=== PATIENT | female | born 1995 | race Caucasian/White ===

== ENCOUNTER 2017-02-12 19:35 | Inpatient (IN) ==
[2017-02-12] MEDS ORDERED: ONDANSETRON 4 MG/2 ML VIAL IV STA (20:04)
[2017-02-12] MEDS ORDERED: SODIUM CHLORIDE 0.9% 1,000 ML IV STA (20:04)
[2017-02-12] MEDS ORDERED: ALUM/MAG/SIMETH/LIDO VISC 1:1 30 ML BOTTLE PO STA (20:04)
[2017-02-12] MEDS ORDERED: HYDROmorphone 2 MG/1 ML VIAL IV STA ×2 (20:04→23:03)
[2017-02-12] MEDS ORDERED: PANTOPRAZOLE 40 MG VIAL IV STA (20:04)
--- NOTE | 2017-02-12 20:06 | Emergency Department Note ---
Geovani Yadav Brittany, am scribing for, and in the presence of, Abel Babcock MD 20:03. Sadiq Yadav Charles R, MD, personally performed the services described in this documentation, ascribed by Sharona Olivo in my presence, and it is both accurate and complete . Arrival - Arrival Chief Complaint: Abdominal / Flank Pain Stated Complaint: Stomach pain, High blood sugar ED Nursing Triage Note: C/O Upper abd pain. Onset 4 days ago. Pt reports that she has a history of chronic pancreatitis due to elevated blood sugars when she was younger per pt. +nausea/vomiting. Last CT-[id number]. Denies urinary s/s. FSG 162 at time of triage. Mode of Arrival: Ambulatory Limitations: No Limitations Source: Patient, RN Notes Reviewed Time Seen by Provider: 02/12/17 19:48 - History of Present Illness HPI Narrative: Patient is a 21 y/o female presenting to the ED with c/o upper abdominal pain that radiates into the back which began 4 days ago. Patient has had some associated nausea and vomiting with this. Denies any urinary symptoms. Patient states that she has had a fluctuation in blood glucose levels today. Reports that current symptoms are similar to those experienced with past episodes of Pancreatitis. Denies possibility of and does not take oral contraceptives. Patient reports a history of Chronic Pancreatitis and Gastroparesis secondary to Hyperglycemia. Last normal bowel movement was today. During triage patient was noted to have a blood glucose level of 162 mg/dL. PCP is Dr. Cardoza of [place], [place]. Patient denies having any further complaints. PMHx of IDDM, Psoriasis, Eczema, Gastroparesis, Chronic Pancreatitis and Cholecystectomy. Onset (ago): day(s) (4) Consistency: constant Date of Last Menstrual Period: 2 weeks ago Allergies/Adverse Reactions: Allergies Allergy/AdvReac Type Severity Reaction Status Date / Time almond Allergy ANAPHYLAXIS Verified 11/21/16 11:19 Amoxicillin Allergy ANAPHYLAXIS Verified 11/21/16 11:19 metoclopramide [From Reglan] Allergy HIVES Verified 11/21/16 11:19 morphine Allergy HIVES Verified 11/21/16 11:19 cinnamon Allergy ANAPHYLAXIS Uncoded 11/21/16 11:19 Home Medications: Home Medications Medication Instructions Recorded Confirmed Type Insulin Aspart [NovoLOG FlexPen] 0 unit SUBCUT DIRECTED 02/12/17 02/12/17 History Insulin Glargine [Lantus] 12 unit SUBCUT BEDTIME 02/12/17 02/12/17 History Loratadine [Claritin] 10 mg PO QAM 02/12/17 02/12/17 History Review of System - Review of System 12 point system: reviewed and no additional remarkable complaints except as stated - Review of System Constitutional: Absent: chills, fever Respiratory: Absent: respiratory distress Gastrointestinal: Present: abdominal pain, nausea, vomiting. Absent: diarrhea, constipation Genitourinary female: Absent: dysuria, frequency, urgency Musculoskeletal: Present: back pain Medical,Surgical,& Family Hx - Medical History Endocrine: History of: Diabetes Mellitus (IDDM) (type 1) Rheumatology: History of;: Psoriasis Gastrointestinal: History of: Pancreatitis (chronic), GI Problems (gastrparesis) Other: History of: Eczema, Skin Problems (psoriasis ) - Surgical History Reproductive Surgeries: Surgical HX of;: Dilation and Curettage - Family History Family History: Reports;: Family Diabetes - Social History Smoking Status: Never smoker Frequency of Alcohol Use: None Type of Drug Use: Marijuana Exam Vital Signs: Vital Signs Temperature 98.0 F 02/12/17 19:37 Pulse Rate 116 H 02/12/17 19:37 Respiratory Rate 16 02/12/17 19:37 Blood Pressure 136/81 02/12/17 19:37 O2 Sat by Pulse Oximetry 99 02/12/17 19:37 - General General appearance: alert, in no apparent distress - Head Head exam: Present: atraumatic, normocephalic - Eye Eye exam: Present: PERRL, EOMI - ENT ENT exam: Present: mucous membranes dry, other (breath does not smell ketotic). Absent: mucous membranes moist - Neck Neck exam: Present: normal inspection, full ROM, trachea midline - Chest Chest inspection: Present: normal inspection, symmetric chest wall rise - Respiratory Respiratory exam: Present: normal lung sounds bilaterally. Absent: respiratory distress - Cardiovascular Cardiovascular exam: Present: normal rhythm, tachycardia, normal heart sounds. Absent: regular rate - Abdominal Exam Abdominal exam: Present: soft, tenderness (epigastric and mid-abdominal tenderness), hypoactive bowel sounds. Absent: normal bowel sounds - Extremities Exam Extremities exam: Present: normal inspection - Back Exam Back exam: Present: normal inspection - Neurological Exam Neurological exam: Present: alert, oriented X3, CN II-XII intact. Absent: motor sensory deficit - Psychiatric Psychiatric exam: Present: normal affect, normal mood - Skin Skin exam: Present: warm, dry, intact, normal color Course - Reevaluation(s) Reevaluation #1: Patient still feeling sick still having abdominal pain still having nausea symptoms Time: 22:31 - Consultations Consultation #1: Hospitalist will admit patient Time: 22:31 Results - Labs CBC & BMP: 02/12/17 19:52 02/12/17 19:52 Lab Results: I have reviewed the patients labs Labs: Laboratory Tests 02/12/17 19:39 POC Glucose 162 H Laboratory Tests 02/12/17 02/12/17 19:52 19:52 WBC 10.8 RBC 3.93 Hgb 12.3 Hct 35.5 L Plt Count 277 b-Hydroxybutyric mmol/L 0.3 Laboratory Tests 02/12/17 19:52 Urine Color Yellow Urine Appearance Cloudy Urine pH 6.0 Ur Specific [place] 1.010 Urine Protein 30 Urine Glucose (UA) Negative Urine Ketones Negative Urine Blood Negative Urine Nitrate Negative Urine Bilirubin Negative Urine Urobilinogen < 2.0 H Urine Leukocytes Large H Urine RBC 7 Urine WBC 1337 Ur Squamous Epith Cells Occasional Urine Bacteria Moderate Urine Mucus Occasional Laboratory Tests 02/12/17 19:52 Sodium 140 Potassium 3.6 Chloride 105 Carbon Dioxide 27 BUN 7 Creatinine 0.60 Glucose 184 H Lactic Acid 1.1 Calcium 9.1 Magnesium 1.6 L Troponin I < 0.015 Albumin 3.3 L Globulin 3.7 H Albumin/Globulin Ratio 0.8 L Amylase 23 L Lipase 60.0 L Laboratory Tests 02/12/17 19:52 Urine Test Negative - Diagnostic Findings Procedure: CT Abdomen and Pelvis: image reviewed by me, report reviewed by me ( Negative CT abdomen pelvis) Disposition Clinical Impression: Gastroenteritis, Dehydration, Epigastric abdominal pain, Intractable nausea and vomiting, Abdominal pain, Gastroparesis, UTI (urinary tract infection), Hypomagnesemia, Hyperglycemia, History of recurrent pancreatitis Case discussed with: patient, patient's family Disposition: Still a Patient Condition: Stable Time of Disposition: 22:32
[2017-02-12 20:20] LABS: Basophils # 0.1 10*3/uL (0.0-0.2); Basophils % 0.5 % (0.0-0.8); Eosinophils # 0.1 10*3/uL (0.0-0.87); Eosinophils % 0.8 % (0.00-10.9); Hematocrit 35.5 VOL% (35.7-47.0); Hemoglobin 12.3 GM/DL (12.0-16.0); Immature Granulocytes % 0.2 %; Immature Granulocytes Absolute 0.02 #; Lymphocytes # 2.6 10*3/uL (1.4-4.0); Lymphocytes % 24.3 % (21.3-54.2); Mean Corpuscular HGB Conc 34.6 GM/DL (32-36); Mean Corpuscular Hemoglobin 31 PG (27-34); Mean Corpuscular Volume 90.3 FL (87-102); Mean Platelet Volume 10.1 FL (9.6-12.0); Monocytes # 0.8 10*3/uL (0.11-0.8); Monocytes % 7.6 % (1.7-12.7); Neutrophils # 7.2 10*3/uL (1.4-7.4); Neutrophils % 66.6 % (38.7-73.9); Platelet Count 277 T/CUMM (130-400); Red Blood Count 3.93 MC/CUMM (3.8-5.5); Red Cell Distribution Width 12.7 % (9.3-17.3); White Blood Count 10.8 T/CUMM (4-12)
[2017-02-12] MEDS ORDERED: HYDROmorphone 2 MG/1 ML VIAL ONE (20:31)
[2017-02-12] MEDS ORDERED: PANTOPRAZOLE 40 MG VIAL IV ONE (20:31)
[2017-02-12] MEDS ORDERED: ONDANSETRON 4 MG/2 ML VIAL ONE (20:31)
[2017-02-12] MEDS ORDERED: ALUM/MAG/SIMETH/LIDO VISC 1:1 30 ML BOTTLE PO ONE (20:31)
[2017-02-12 20:38] LABS: Apearance,Urine CLOUDY (Clear); Bacteria,Urine Moderate /HPF (Few); Bilirubin,Urine Negative (Negative); Blood, Urine Negative (Negative); Glucose,Urine (UA) Negative (Negative); Ketones,Urine Negative (Negative); Mucus,Urine Occasional /LPF (Occasional); Nitrite,Urine Negative (Negative); Protein,Urine 30 MG/DL; RBC,Urine 7 /HPF (0-4); Squamous Epithelial Cell,Urine Occasional /HPF (0-10); Urine Color Yellow (Yellow); Urine Urobilinogen < 2.0 EU/DL (0.2-1.0); WBC,Urine 1337 /HPF (0-6)
[2017-02-12 20:40] LABS: Lactic Acid 1.1 MMOL/L (0.4-2.0)
[2017-02-12 20:42] LABS: Alanine Aminotransferase 22 U/L (13-56); Albumin 3.3 G/DL (3.4-5.0); Alkaline Phosphatase 101 U/L (45-117); Amylase 23 U/L (25-115); Aspartate Amino Transferase 18 U/L (0-37); Bilirubin,Total < 0.39 MG/DL (0.2-1.0); Blood Urea Nitrogen 7 MG/DL (7-18); Calcium 9.1 MG/DL (8.5-10.1); Glucose 184 MG/DL (74-106); Magnesium 1.6 MG/DL (1.8-2.4); Osmolality,Calculated 281.4 MOS/KG (273-304); Potassium 3.6 MMOL/L (3.5-5.1); Sodium 140 MMOL/L (136-145); Troponin I Only < 0.015 NG/ML (0.00-0.045)
[2017-02-12] MEDS ORDERED: MAGNESIUM SULF RIDER 2 GM in PREMIX 1 EACH IV STA (21:07)
[2017-02-12] MEDS ORDERED: LEVOFLOXACIN INJ 750 MG in PREMIX 1 EACH IV STA (21:07)
[2017-02-12] MEDS ORDERED: MAGNESIUM SULF RIDER 50 ML IV ONE (21:50)
[2017-02-12] MEDS ORDERED: LEVOFLOXACIN INJ 150 ML IV ONE (21:50)
[2017-02-12 22:48] LABS: Barbiturates Screen,Urine Negative (Negative); Benzodiazepines Screen,Urine Negative (Negative); Cannabinoid Screen,Urine Positive (Negative); Opiate Screen,Urine Positive (Negative); Phencyclidine Screen,Urine Negative (Negative)
--- NOTE | 2017-02-12 23:16 | Hospitalist History & Physical ---
Assessment and Plan (1) Abdominal pain Status: Acute Assessment and plan: The patient is admitted hospital with epigastric and abdominal pain with radiation to the back. We will start the patient on twice daily Pepcid and treat with narcotic for pain relief. Will obtain GI consultation in the morning. Current Visit: Yes Qualifiers: Abdominal location: right upper quadrant Qualified Code(s): R10.11 - Right upper quadrant pain (2) Diabetes type 1, controlled Status: Acute Current Visit: Yes Qualifiers: Diabetes mellitus complication status: with other specified complication Qualified Code(s): E10.69 - Type 1 diabetes mellitus with other specified complication (3) Gastroparesis Status: Acute Current Visit: Yes History of Present Illness Chief complaint: Abdominal pain History of present illness: Ms. Lebron is a 21 year old female whose last name was roxannllsania MARCIAL on last admission. The patient presented to emergency room with epigastric pain radiating to the back. The patient has diabetes mellitus type 1 and takes intermittent insulin injections with Lantus at night. The patient's pain is moderate, continuous, and not improving at home. It is associated with vomiting. The patient denies fever, chills, angina, shortness of breath. The patient's symptoms began 2 days prior to admission to the hospital per her history. A complete 10 system review is obtained all systems not mentioned in history of present illness were negative. Home Medications Medication Instructions Recorded Confirmed Type Insulin Aspart [NovoLOG FlexPen] 0 unit SUBCUT DIRECTED 02/12/17 02/12/17 History Insulin Glargine [Lantus] 12 unit SUBCUT BEDTIME 02/12/17 02/12/17 History Loratadine [Claritin] 10 mg PO QAM 02/12/17 02/12/17 History Allergies Allergy/AdvReac Type Severity Reaction Status Date / Time almond Allergy ANAPHYLAXIS Verified 11/21/16 11:19 Amoxicillin Allergy ANAPHYLAXIS Verified 11/21/16 11:19 metoclopramide [From Reglan] Allergy HIVES Verified 11/21/16 11:19 morphine Allergy HIVES Verified 11/21/16 11:19 cinnamon Allergy ANAPHYLAXIS Uncoded 11/21/16 11:19 Medical,Surgical,& Family Hx - Medical History Endocrine: History of: Diabetes Mellitus (IDDM) (type 1) Rheumatology: History of;: Psoriasis Gastrointestinal: History of: Pancreatitis (chronic), GI Problems (gastrparesis) Other: History of: Eczema, Skin Problems (psoriasis ) - Surgical History Reproductive Surgeries: Surgical HX of;: Dilation and Curettage - Family History Family History: Reports;: Family Diabetes - Social History Smoking Status: Never smoker Frequency of Alcohol Use: None Type of Drug Use: Marijuana 12 point system: reviewed and no additional remarkable complaints except as stated Exam - Constitutional Vitals: Period Temp Pulse Resp BP Sys/Leiva Pulse Ox Last 24 Hr 98 F-98.0 F 116-116 16-16 136-136/81-81 99 Exam: Constitutional System: Moderate distress. No tremulousness. Head: Normocephalic, atraumatic. Ears, Nose and Throat System: No evidence of Otitis or Mastoiditis. No epistaxis or discharge Eyes System: Pupils equal, round, and reactive. Extraocular muscles intact. Neck: Supple, without adenopathy, No jugular venous distention. No thyromegaly , neck mass, or prior surgery apparent. Respiratory System: Chest clear to auscultation. Cardiovascular System: Heart with regular rate and rhythm. No murmur. GI System: Abdomen soft, moderate tender. Hypo-active bowel sounds present. Musculoskeletal System: limbs with no pedal edema. Full distal pulses. Neurological System: No discernable sensory deficit. No aphasia Psychiatric System: Conversation is rational Results - Labs CBC & BMP: 02/12/17 19:52 02/12/17 19:52 Lab Results: I have reviewed the past 24 hour labs
[2017-02-13] MEDS ORDERED: DEXTROSE 50% 25 GM/50 ML SYRINGE IV PRN (01:54)
[2017-02-13] MEDS ORDERED: GLUCAGON 1 MG VIAL IM PRN (01:54)
[2017-02-13] MEDS: SODIUM CHLORIDE 0.9% 1,000 ML IV SCH ×4 (01:57→20:06)
[2017-02-13] MEDS: PROMETHAZINE 25 MG/1 ML VIAL IM PRN ×3 (02:15→17:15)
[2017-02-13] MEDS: FAMOTIDINE 20 MG/2 ML VIAL IV SCH ×2 (02:15→13:05)
[2017-02-13] MEDS: INSULIN GLARGINE 100 UNIT/ML SUBCUT SCH ×2 (02:15→20:05)
[2017-02-13] MEDS: HYDROmorphone 2 MG/1 ML VIAL IV PRN ×5 (02:16→22:03)
[2017-02-13 07:03] LABS: Basophils % 0.4 % (0.0-0.8); Eosinophils % 0.5 % (0.00-10.9); Hematocrit 34.5 VOL% (35.7-47.0); Hemoglobin 11.8 GM/DL (12.0-16.0); Immature Granulocytes % 0.4 %; Immature Granulocytes Absolute 0.03 #; Lymphocytes # 1.9 10*3/uL (1.4-4.0); Mean Corpuscular HGB Conc 34.2 GM/DL (32-36); Mean Corpuscular Hemoglobin 31 PG (27-34); Monocytes # 0.6 10*3/uL (0.11-0.8); Monocytes % 7.3 % (1.7-12.7); Neutrophils # 5.5 10*3/uL (1.4-7.4); Neutrophils % 68.4 % (38.7-73.9); Platelet Count 256 T/CUMM (130-400); Red Blood Count 3.79 MC/CUMM (3.8-5.5); Red Cell Distribution Width 12.8 % (9.3-17.3)
[2017-02-13] MEDS: INSULIN LISPRO 100 UNIT/ML SUBCUT SCH ×4 (08:32→20:05)
[2017-02-13] MEDS: ENOXAPARIN 40 MG/0.4 ML SYRINGE SUBCUT SCH (08:33)
[2017-02-13 08:55] LABS: Calcium 8.7 MG/DL (8.5-10.1); Magnesium 1.8 MG/DL (1.8-2.4); Osmolality,Calculated 282.5 MOS/KG (273-304); Potassium 4.1 MMOL/L (3.5-5.1)
--- NOTE | 2017-02-13 08:57 | CT Report ---
CT of the abdomen and pelvis with intravenous contrast. No oral contrast was administered. 100 cc Omni 350. Axial images were obtained with sagittal and coronal reconstructions. Indication: Epigastric pain. Comparison: Noncontrasted study from May 07, 2016. There is a preliminary report from [facility]. The heart is normal in size. The lung bases are clear. There is no pericardial or pleural effusion. The liver is enlarged with a length of 21 cm. There is fatty infiltration of the liver. The gallbladder has been removed. The spleen is upper limits of normal in size. There is no adrenal enlargement. The kidneys are normal in size, location, and contour. No focal renal lesions are identified. There is no hydronephrosis. There is mild uniform urinary bladder wall thickening. There is no adrenal enlargement. There is no pancreatic enlargement. The abdominal aorta is of normal caliber. There is no free air present within the peritoneal cavity. There is a small amount of free fluid noted within the pelvis. The uterus is normal in size. The ovaries are not discretely seen. The loops of small intestine are not dilated. The terminal ileum appears normal. The appendix appears normal. There are a few subcentimeter lymph nodes in the right lower quadrant mesentery. The osseous structures are unremarkable. Within the left aspect of the pelvis, there is a small metal density, probably representing a surgical clip. Note that it is changed slightly in position compared to the previous study. Impression: 1. Enlarged fatty liver. 2. Small amount of free fluid within the pelvis. 3. Urinary bladder wall thickening, could indicate cystitis. 4. Subcentimeter lymph nodes in the right lower quadrant mesentery, this can be seen with mesenteric adenitis. The CT exam was performed using one or more of the following dose reduction techniques: Automated exposure control, adjustment of the mA and/or kV according to patient size, or use of iterative reconstruction technique. PROCEDURE INTERPRETED AT [facility], [place] DEPARTMENT OF RADIOLOGY Final Report Signed by: Dr. Loly Gilbert
--- NOTE | 2017-02-13 09:36 | XRay Report ---
2 view abdomen. Indication: Abdomen pain. The heart is normal in size. The lung bases are clear. Surgical clips are noted in the right upper quadrant and left pelvis. Contrast material is present within nondilated collecting systems and a normal appearing urinary bladder. Bowel gas pattern is normal. No free air. No organomegaly. Normal osseous structures. Impression: No abnormality is seen. PROCEDURE INTERPRETED AT [facility] DEPARTMENT OF RADIOLOGY Final Report Signed by: Dr. Loly Gilbert
--- NOTE | 2017-02-13 13:22 | Gastrointestinal Consult Note ---
Assessment and Plan (1) Intractable nausea and vomiting Status: Chronic Assessment and plan: Persistent nausea and vomiting with complaints of abdominal pain likely secondary to her acute urinary tract infection. She has had previous cholecystectomy and has no history to suggest acid peptic source. Clinically she likely does have some component of gastroparesis that has been exacerbated by her acute urinary tract infection. At this point will continue with antiemetics IV fluids treat her acute UTI and monitor. Current Visit: Yes Qualifiers: Vomiting type: unspecified Qualified Code(s): R11.2 - Nausea with vomiting , unspecified History of Present Illness Chief complaint: Nausea and vomiting with abdominal pain History of present illness: Ms. Lebron is a 21 year old female With long-standing history of vent dependent diabetes mellitus was previously on an insulin infusion pump she has been off that for some time. Patient presented with complaints of several day history of abdominal pain she found to have urinary tract infection with gram-negative rods.. She has had occasional heartburn indigestion but only a regular basis. She has never had previous ulcer that she reports. She has had previous cholecystectomy. No clinical sign of obstruction at this time. No other family members have been ill. Home Medications Medication Instructions Recorded Confirmed Type Insulin Aspart [NovoLOG FlexPen] 0 unit SUBCUT DIRECTED 02/12/17 02/12/17 History Insulin Glargine [Lantus] 12 unit SUBCUT BEDTIME 02/12/17 02/12/17 History Loratadine [Claritin] 10 mg PO QAM 02/12/17 02/12/17 History Allergies Allergy/AdvReac Type Severity Reaction Status Date / Time almond Allergy ANAPHYLAXIS Verified 11/21/16 11:19 Amoxicillin Allergy ANAPHYLAXIS Verified 11/21/16 11:19 metoclopramide [From Reglan] Allergy HIVES Verified 11/21/16 11:19 morphine Allergy HIVES Verified 11/21/16 11:19 cinnamon Allergy ANAPHYLAXIS Uncoded 11/21/16 11:19 Medical,Surgical,& Family Hx - Medical History Endocrine: History of: Diabetes Mellitus (IDDM) (type 1) Rheumatology: History of;: Psoriasis Gastrointestinal: History of: Pancreatitis (chronic), GI Problems (gastrparesis) Other: History of: Eczema, Skin Problems (psoriasis ) - Surgical History Reproductive Surgeries: Surgical HX of;: Dilation and Curettage - Family History Family History: Reports;: Family Diabetes - Social History Smoking Status: Never smoker Frequency of Alcohol Use: None Type of Drug Use: Marijuana - Constitutional Constitutional: Absent: chills, fever(s) - EENT Eyes: Absent: blurry vision Nose, mouth and throat: Absent: dysphagia, epistaxis - Cardiovascular Cardiovascular: Absent: chest pain at rest, chest pain with activity, edema - Respiratory Respiratory: Absent: cough, dyspnea - Gastrointestinal Gastrointestinal: Present: abdominal pain, bloating, nausea, vomiting. Absent: diarrhea - Genitourinary Genitourinary: Present: flank pain. Absent: hematuria - Neurological Neurological: Absent: abnormal gait, abnormal speech - Hematologic/Lymphatic Hematologic/Lymphatic: Absent: easy bleeding, easy bruising, lymphadenopathy Exam - Constitutional Vitals: Period Temp Pulse Resp BP Sys/Leiva Pulse Ox Last 24 Hr 97.1 F-98.0 F 81-116 16-20 108-136/63-86 94-99 General appearance: normal weight, no acute distress - Head Head exam: Present: normal inspection, normocephalic, atraumatic - Eye Eye exam: Present: EOMI. Absent: conjunctival injection, scleral icterus Pupils: Present: DORI. Absent: irregular - ENT ENT exam: Present: normal oropharynx - Neck Neck exam: Absent: lymphadenopathy, tenderness, thyromegaly - Respiratory Respiratory exam: Present: clear to auscultation bilaterally. Absent: accessory muscle use, rales - Cardiovascular Cardiovascular exam: Present: regular rate and rhythm. Absent: systolic murmur - GI/Abdominal GI/Abdominal exam: Present: normal bowel sounds, soft. Absent: ascites, guarding, mass, organomegaly, tenderness - Extremities Exam Extremities exam: Absent: edema - Neurological Exam Neurological exam: Present: alert, oriented X3 - Psychiatric Psychiatric exam: Present: normal affect, normal mood Results - Labs CBC & BMP: 02/13/17 06:25 02/13/17 06:25 Lab Results: I have reviewed the past 24 hour labs
--- NOTE | 2017-02-13 15:12 | Hospitalist Progress Note ---
Assessment and Plan (1) Gram-positive cocci bacteremia Status: Acute Assessment and plan: Speciation at this point is not known. This is 1 out of 2 sets. Repeat blood cultures this afternoon. Patient did receive a dose of levofloxacin yesterday in the emergency room but since then has not received any antibiotics until I saw her. Current Visit: Yes (2) Penicillin allergy Status: Acute Assessment and plan: From what I have explained to that this was an anaphylactic reaction. For this reason this patient is not going to get to the ceftriaxone I wanted to give a but will give aztreonam (monobactam) 1 g every 8 hours. This does not have any gram-positive coverage will add vancomycin empirically as we will reevaluate in this bacteremia. It turns out clinically that this is a contamination vancomycin will be discontinued. 48 hours should be enough to tell us that. Current Visit: Yes (3) Abdominal pain Status: Acute Assessment and plan: Better than yesterday but still with some discomfort as described above. Patient is not toxic. Current Visit: Yes Qualifiers: Abdominal location: right upper quadrant Qualified Code(s): R10.11 - Right upper quadrant pain (4) UTI (urinary tract infection) Status: Acute Assessment and plan: At this point all I know is that this is a gram-negative UTI. As mentioned above aztreonam will be used for his treatment. Current Visit: No (5) Gastroparesis Status: Acute Assessment and plan: Patient does not have symptoms of nausea vomiting at this time the diabetes is actually controlled. Current Visit: Yes (6) Diabetes type 1, controlled Status: Acute Current Visit: Yes Qualifiers: Diabetes mellitus complication status: with other specified complication Qualified Code(s): E10.69 - Type 1 diabetes mellitus with other specified complication Hospitalist: Subjective Interval history: Patient has been seen interviewed and examined chart has been reviewed. Admitted to the hospital yesterday with back pain radiating from the epigastric area. This patient was admitted with suggest gastroparesis. And abdominal pain. blood cultures and urine culture was obtained and the urine has grown gram -negative rods greater than 100,000 colonies with a gram-positive coccus species growing in the blood 1 out of 2 sets. Exam - Constitutional Vitals: Period Temp Pulse Resp BP Sys/Leiva Pulse Ox Last 24 Hr 97.1 F-98.0 F 81-116 16-20 108-136/63-86 94-99 General appearance: normal weight - Head Head exam: Present: normocephalic, atraumatic - Eye Eye exam: Present: EOMI, other (Anicteric sclera no conjunctival petechia) Pupils: Present: DORI - ENT ENT exam: Present: normal exam - Neck Neck exam: Present: normal inspection - Respiratory Respiratory exam: Present: clear to auscultation bilaterally - Cardiovascular Cardiovascular exam: Present: regular rate and rhythm - GI/Abdominal GI/Abdominal exam: Present: normal bowel sounds, soft (Tender in the right lower quadrant and right CVA) - Extremities Exam Extremities exam: Present: full ROM - Neurological Exam Neurological exam: Present: alert, oriented X3, CN II-XII intact - Psychiatric Psychiatric exam: Present: normal affect, normal mood - Skin Skin exam: Present: normal color, warm, other (With some tattoos on his) Results - Labs CBC & BMP: 02/13/17 06:25 02/13/17 06:25 Lab Results: I have reviewed the past 24 hour labs (1 out of 2 blood cultures growing gram-positive cocci and the urine has a gram-negative Road. Patient will be started on antibiotics)
[2017-02-13] MEDS: AZTREONAM 1,000 MG in SODIUM CHLORIDE 0.9% 100 ML IV SCH ×2 (15:52→22:03)
[2017-02-13] MEDS ORDERED: VANCOMYCIN INJ 1,250 MG in SODIUM CHLORIDE 0.9% 250 ML IV SCH (16:00)
[2017-02-13] MEDS: diphenhydrAMINE 50 MG/1 ML VIAL IV PRN (18:00)
[2017-02-14] MEDS: FAMOTIDINE 20 MG/2 ML VIAL IV SCH ×2 (01:10→14:27)
[2017-02-14] MEDS: PROMETHAZINE 25 MG/1 ML VIAL IM PRN ×2 (01:11→08:44)
[2017-02-14] MEDS: HYDROmorphone 2 MG/1 ML VIAL IV PRN ×5 (04:07→22:54)
[2017-02-14] MEDS: SODIUM CHLORIDE 0.9% 1,000 ML IV SCH ×4 (06:18→22:56)
[2017-02-14] MEDS: AZTREONAM 1,000 MG in SODIUM CHLORIDE 0.9% 100 ML IV SCH ×3 (06:18→22:55)
[2017-02-14] MEDS: INSULIN LISPRO 100 UNIT/ML SUBCUT SCH ×4 (08:35→20:28)
[2017-02-14] MEDS: ENOXAPARIN 40 MG/0.4 ML SYRINGE SUBCUT SCH (08:36)
--- NOTE | 2017-02-14 13:15 | Hospitalist Progress Note ---
Assessment and Plan (1) Gram-positive cocci bacteremia Status: Acute Assessment and plan: Speciation at this point is not known. This is 2 out of 2 sets today. Repeated blood cultures yesterday afternoon. Will add clindamycin 600 mg IV every 8 hours. She has multiple drug allergies mitigating use of vancomycin and beta lactams Current Visit: Yes (2) Penicillin allergy Status: Acute Assessment and plan: Avoiding beta lactams. Current Visit: Yes (3) Abdominal pain Status: Acute Assessment and plan: Is more pain today in the right upper quadrant mostly. Severe nondescript complaints. Check HIV status. Current Visit: Yes Qualifiers: Abdominal location: right upper quadrant Qualified Code(s): R10.11 - Right upper quadrant pain (4) UTI (urinary tract infection) Status: Acute Assessment and plan: At this point all I know is that this is a gram-negative UTI. As mentioned above aztreonam will be used for his treatment. Current Visit: No (5) Gastroparesis Status: Acute Assessment and plan: Patient does not have symptoms of nausea vomiting at this time the diabetes is actually controlled. Current Visit: Yes (6) Diabetes type 1, controlled Status: Acute Current Visit: Yes Qualifiers: Diabetes mellitus complication status: with other specified complication Qualified Code(s): E10.69 - Type 1 diabetes mellitus with other specified complication Hospitalist: Subjective Interval history: Patient had been seen interviewed and examined and chart has been reviewed she is complaining of more mook pain today but more so in the area of the spleen. CT scan done at admission did show presence of subsequently Q lymph nodes in the area of the right suggesting mesenteric adenitis. Quadrant right lower she does acknowledge of some diarrhea at home but has not had a bowel movement here. She does have thickening of the urinary bladder wall suggesting cystitis. She came in with positive blood cultures growing a gram-positive cocci antibiogram still pending this is described to be in pairs and chains. Urine did grow E. coli, sensitive to everything except ampicillin. Patient is on clindamycin because of a history of anaphylaxis to beta lactams some kind of allergy to vancomycin. We will add vancomycin if she can tolerate it. Repeat blood cultures Exam - Constitutional Vitals: Period Temp Pulse Resp BP Sys/Leiva Pulse Ox Last 24 Hr 97 F-98.2 F 70-96 14-20 111-125/65-88 96-100 General appearance: normal weight, mild distress - Head Head exam: Present: normocephalic, atraumatic - Eye Eye exam: Present: EOMI, other (Icteric sclera) Pupils: Present: DORI - Respiratory Respiratory exam: Present: clear to auscultation bilaterally - Cardiovascular Cardiovascular exam: Present: regular rate and rhythm - Extremities Exam Extremities exam: Present: full ROM - Neurological Exam Neurological exam: Present: alert, oriented X3, CN II-XII intact - Psychiatric Psychiatric exam: Present: other (Subdued mood and affect) - Skin Skin exam: Present: normal color, warm, dry Results - Labs CBC & BMP: 02/13/17 06:25 02/13/17 06:25 Lab Results: I have reviewed the past 24 hour labs (Microbiology report as noted above)
--- NOTE | 2017-02-14 13:35 | Event Note ---
Chief complaint abdominal pain Little change from yesterday but states she is having some less pain. She still having poor p.o. intake but no more vomiting is reported. She previously seen by Dr. Carlisle during a prior hospitalization and will plan EGD in a.m. with Dr. Bates for further evaluation. We will continue with treatment of her UTI pending for specific ID and sensitivity. Review of systems denies any shortness of breath or chest pain On exam she is afebrile vital signs are stable she is alert and oriented lungs clear to all station heart regular rate and rhythm no murmur abdomen soft nondistended nontender no masses no hepatosplenomegaly bowel sounds normoactive extremities no clubbing cyanosis or edema neurologic grossly nonfocal. Recommendations: Continue current treatment and plan EGD in a.m. with Dr. Carlisle who will assume GI care.
[2017-02-14] MEDS: CLINDAMYCIN INJ 600 MG in PREMIX 1 EACH IV SCH ×2 (13:47→20:29)
[2017-02-14 14:42] LABS: HIV Antigen/Antibody Result Nonreactive (Nonreactive)
[2017-02-14] MEDS: INSULIN GLARGINE 100 UNIT/ML SUBCUT SCH (20:28)
[2017-02-15] MEDS: diphenhydrAMINE 50 MG/1 ML VIAL IV PRN (00:27)
[2017-02-15] MEDS: FAMOTIDINE 20 MG/2 ML VIAL IV SCH ×2 (00:27→01:07)
[2017-02-15] MEDS: CLINDAMYCIN INJ 600 MG in PREMIX 1 EACH IV SCH (05:03)
[2017-02-15] MEDS: HYDROmorphone 2 MG/1 ML VIAL IV PRN (05:04)
[2017-02-15] MEDS: AZTREONAM 1,000 MG in SODIUM CHLORIDE 0.9% 100 ML IV SCH (06:09)
[2017-02-15] MEDS: INSULIN LISPRO 100 UNIT/ML SUBCUT SCH ×4 (07:59→20:25)
[2017-02-15] MEDS: ENOXAPARIN 40 MG/0.4 ML SYRINGE SUBCUT SCH (07:59)
[2017-02-15] MEDS ORDERED: ONDANSETRON 4 MG/2 ML VIAL ONE (08:57)
[2017-02-15] MEDS ORDERED: PROPOFOL 200 MG/20 ML VIAL IV ONE (08:57)
[2017-02-15] MEDS ORDERED: LIDOCAINE 1% 5 ML VIAL ONE (08:57)
--- NOTE | 2017-02-15 09:07 | Operative Note ---
Date of procedure: 02/15/17 Pre-op diagnosis: Possible gastroparesis, intractable nausea and vomiting Post-op diagnosis: other (This is a patient with moderate to large amount of retained green fluid in her stomach consistent with gastroparesis, there is some question as to whether or not the patient is allergic to Reglan and she has hives when exposed to this medication. For right now we will switch her to erythromycin to see if this helps. She is nauseous. Will try full liquid diet and acid suppression with twice daily Protonix. Observation in house until she is improved. She may be a candidate for gastric pacemaker down the road.) Procedure: PROCEDURE: Esophagogastroduodenoscopy (EGD) with cold biopsy for pathology REFERRING PHYSICIAN: Dr. Jignesh Man MD INDICATIONS: Intractable nausea and vomiting in a patient who has a history of gastroparesis, reported allergy to Reglan (hives). question of gastroparesis versus gastritis the prior H&P was reviewed and interrim changes are as noted: No change from GI consultation 2 days ago ENDOSCOPIST: Ben Carlisle MD ENDOSCOPE: Olympus Video 100 System upper endoscope ASA CLASS: 3 EXAM: CV: regular rate and rhythm respiratory: Clear without wheezes abdominal: active bowel sounds MEDICATION: Per nursing anesthesia protocol, see their notes PROCEDURE: After discussion of the potential risks and benefits of upper endoscopy, the informed consent was obtained. The patient was then placed in the left lateral decubitus position where sedation was achieved as noted above. Esophageal intubation was performed without difficulty, and the endoscope was advanced through the esophagus, stomach and duodenum. A slow withdrawal was then performed with retroflexion in the stomach for careful inspection of the incisura angularis, fundus and cardia. The scope was then returned to a neutral position and withdrawn through the esophagus. The patient tolerated the procedure well and without complication. BIOPSIES: Gastric antrum/body PHOTOGRAPHS: Obtained FINDINGS: Hypopharynx and Larynx: Normal Esohagoscopy Upper and middle thirds: Normal Lower third distal erythema without erosion, 2 cm Esophogastric junctions: No gross evidence of erosion or Smith's epithelium, mild erythema noted here consistent with reflux. Gastroscopy: Cardia/Fundus: Moderate to large amount of retained green fluid here consistent with gastroparesis with some stasis gastritis and a 2 cm hiatal hernia Body: Moderate to large amount of retained green fluid here consistent with gastroparesis and stasis gastritis, biopsied Antrum and pylorus moderate nonerosive gastritis, biopsied, no pyloric stenosis Duodenoscopy: Bulb normal Second and third portions: Normal IMPRESSION: This is a patient with moderate to large amount of retained green fluid in her stomach consistent with gastroparesis, there is some question as to whether or not the patient is allergic to Reglan and she has hives when exposed to this medication. For right now we will switch her to erythromycin to see if this helps. She is nauseous. Will try full liquid diet and acid suppression with twice daily Protonix. Observation in house until she is improved. She may be a candidate for gastric pacemaker down the road. RECOMMENDATIONS: Follow up for biopsy results in 1-2 weeks by phone [phone] Continue anti-gastroesophageal reflux measures (avoid carbonated and acidic beverages, avoid eating within 2 hours of bedtime, avoid tight fitting clothing , and elevate the front bed posts 6 inches prior to sleeping. Erythromycin IV 200 mg every 6 hours Protonix 40 mg twice daily Ben Carlisle MD COPY TO: Dr. Jignesh Man MD Anesthesia: MAC Surgeon / Physician: Ben Carlisle Estimated blood loss: minimal Specimens: other (Gastric antrum/body) Condition: stable Disposition: post procedure unit ([facility]I. Suite) Results - Labs CBC & BMP: 02/13/17 06:25 02/13/17 06:25 Discharge Plan - Discharge Medications No Action Insulin Aspart [NovoLOG FlexPen] 0 unit SUBCUT DIRECTED Loratadine [Claritin] 10 mg PO QAM Insulin Glargine [Lantus] 12 unit SUBCUT BEDTIME - Follow Up or Referral - Forms/Instructions
--- NOTE | 2017-02-15 09:13 | Gastrointestinal Progress Note ---
Assessment and Plan (1) Intractable nausea and vomiting Status: Chronic Assessment and plan: Endoscopy today which demonstrated the following: This is a patient with moderate to large amount of retained green fluid in her stomach consistent with gastroparesis, there is some question as to whether or not the patient is allergic to Reglan and she has hives when exposed to this medication. For right now we will switch her to erythromycin to see if this helps. She is nauseous. Will try full liquid diet and acid suppression with twice daily Protonix. Observation in house until she is improved. She may be a candidate for gastric pacemaker down the road. This patient needs to be off of narcotics entirely. Current Visit: Yes Qualifiers: Vomiting type: unspecified Qualified Code(s): R11.2 - Nausea with vomiting , unspecified (2) Gastritis Status: Acute Assessment and plan: Mild gastritis is seen on upper endoscopy, biopsies taken to rule out Helicobacter pyloric. This is likely stasis gastritis from the underlying gastroparesis. The patient does not appear to be on any medications to treat this yet, she is allergic to Reglan by report. We will try erythromycin and see if this helps. There is a drug interaction with clindamycin will discontinue that latter medication. Current Visit: No (3) Gastroparesis Status: Acute Assessment and plan: As noted above, this is likely the patient's cause for her chronic nausea and vomiting. We will see how she does with erythromycin as an emptying agent. This is likely to make her nausea worse in the short-term. She states that she is allergic to Reglan. Current Visit: Yes Gastroenterology - PN: Subj Interval history: This patient is still quite nauseous. She is still been left on Dilaudid which is decreasing her gastric motility. This needs to be discontinued. She can have tramadol possibly as well as Tylenol for pain. Would not use narcotics in her given her history of gastroparesis and findings on endoscopy today. Exam (Progress Note) - Constitutional Vitals: Period Temp Pulse Resp BP Sys/Leiva Pulse Ox Last 24 Hr 97.2 F-98.6 F 75-96 12-20 101-159/58-108 97-99 General appearance: mild distress - Head Head exam: Present: normocephalic - Eye Eye exam: Present: EOMI - Respiratory Respiratory exam: Present: clear to auscultation bilaterally. Absent: rhonchi, wheezes - Cardiovascular Cardiovascular exam: Present: regular rate and rhythm - GI/Abdominal GI/Abdominal exam: Present: normal bowel sounds, tenderness (Diffuse mostly in the epigastric region), soft. Absent: distended, guarding, rebound - Extremities Exam Extremities exam: Absent: edema - Neurological Exam Neurological exam: Present: alert, oriented X3, CN II-XII intact. Absent: motor sensory deficit - Psychiatric Psychiatric exam: Present: normal affect, normal mood - Skin Skin exam: Present: warm Results - Labs CBC & BMP: 02/13/17 06:25 02/13/17 06:25
--- NOTE | 2017-02-15 09:20 | Anesthesia Post-Op ---
Anesthesia Post OP - Post Ansesthetic Evaluation Patient seen in post op: Yes Resp: within normal limits CV: within normal limits Mental: within normal limits Temp: within normal limits [id number]: within normal limits Nausea and Vomiting: within normal limits Pain: within normal limits
[2017-02-15] MEDS ORDERED: ERYTHROMYCIN INJ 250 MG in SODIUM CHLORIDE 0.9% 100 ML IV SCH (09:30)
[2017-02-15] MEDS: ACETAMINOPHEN 325 MG TABLET PO PRN ×2 (10:53→20:28)
[2017-02-15] MEDS: PROMETHAZINE 25 MG/1 ML VIAL IM PRN (11:38)
[2017-02-15 12:02] LABS: Basophils % 0.5 % (0.0-0.8); Eosinophils # 0.2 10*3/uL (0.0-0.87); Eosinophils % 3.2 % (0.00-10.9); Hematocrit 35.8 VOL% (35.7-47.0); Hemoglobin 12.3 GM/DL (12.0-16.0); Immature Granulocytes % 0.3 %; Immature Granulocytes Absolute 0.02 #; Lymphocytes # 1.9 10*3/uL (1.4-4.0); Lymphocytes % 29.8 % (21.3-54.2); Mean Corpuscular HGB Conc 34.4 GM/DL (32-36); Mean Corpuscular Hemoglobin 31 PG (27-34); Mean Corpuscular Volume 90.6 FL (87-102); Mean Platelet Volume 10.2 FL (9.6-12.0); Monocytes # 0.4 10*3/uL (0.11-0.8); Monocytes % 6.6 % (1.7-12.7); Neutrophils # 3.9 10*3/uL (1.4-7.4); Neutrophils % 59.6 % (38.7-73.9); Platelet Count 262 T/CUMM (130-400); Red Blood Count 3.95 MC/CUMM (3.8-5.5); Red Cell Distribution Width 12.4 % (9.3-17.3); White Blood Count 6.5 T/CUMM (4-12)
[2017-02-15 12:30] LABS: Eosinophils 4 % (0-10); Giant Platelets Few; Hypochromasia 1+; Lymphocytes 31 % (20-55); Platelet Estimate Adequate; Segmented Neutrophils 59 % (50-85); Total Cells Counted 100
[2017-02-15 12:32] LABS: Albumin 3.1 G/DL (3.4-5.0); Bilirubin,Total 0.4 MG/DL (0.2-1.0); Calcium 9.1 MG/DL (8.5-10.1); Magnesium 1.9 MG/DL (1.8-2.4); Osmolality,Calculated 281.4 MOS/KG (273-304); Potassium 3.7 MMOL/L (3.5-5.1)
[2017-02-15] MEDS: ERYTHROMYCIN ETHYLSUCCINATE 40 MG/ML 100 ML/BOTTLE PO SCH ×3 (13:16→23:26)
[2017-02-15] MEDS: AZTREONAM 1,000 MG in SODIUM CHLORIDE 0.9% 50 ML IV SCH ×2 (15:32→23:27)
--- NOTE | 2017-02-15 16:04 | Hospitalist Progress Note ---
Assessment and Plan (1) Gram-positive cocci bacteremia Status: Acute Assessment and plan: Speciation at this point is not known. This is 2 out of 2 sets today. Repeated blood cultures yesterday afternoon. Will add clindamycin 600 mg IV every 8 hours. She has multiple drug allergies mitigating use of vancomycin and beta lactams Current Visit: Yes (2) Penicillin allergy Status: Acute Assessment and plan: Avoiding beta lactams. Current Visit: Yes (3) Abdominal pain Status: Acute Assessment and plan: Is more pain today in the right upper quadrant mostly. Severe nondescript complaints. Check HIV status. Current Visit: Yes Qualifiers: Abdominal location: right upper quadrant Qualified Code(s): R10.11 - Right upper quadrant pain (4) UTI (urinary tract infection) Status: Acute Assessment and plan: At this point all I know is that this is a gram-negative UTI. As mentioned above aztreonam will be used for his treatment. Current Visit: No (5) Gastroparesis Status: Acute Assessment and plan: Patient is started on erythromycin for gastric emptying and intestinal motility. Current Visit: Yes (6) Diabetes type 1, controlled Status: Acute Current Visit: Yes Qualifiers: Diabetes mellitus complication status: with other specified complication Qualified Code(s): E10.69 - Type 1 diabetes mellitus with other specified complication Hospitalist: Subjective Interval history: Has been seen interviewed and examined and chart has been reviewed. Admitted to the hospital with intractable vomiting nausea history of diabetes mellitus with gastroparesis. Also noted she continues to complain of intractable abdominal pain mostly in the mid right upper quadrant through the epigastrium going up to the splenic flexure. Very tender to palpation she says. I have repeated lipase today there is no suggestion of inflammation of the pancreas. CT scan at admission did show mesenteric adenitis in the right lower quadrant she does report some diarrhea from home. Abdomen HIV screening is negative. No fevers white count is now normal however 2 sets of blood cultures did grow gram-positive cocci antibiogram as of this hour is still pending. She also did grow a an E. coli in the urine that was pansensitive except with resistance to ampicillin. She has been on antibiotics using aztreonam gram every 8 hours. Besides being on no gram-positive coverage her white count is normal and she is afebrile. We will await growth on both the current repeated cultures. She has been started on erythromycin for GI motility effects. Patient does seem to have profound gastroparesis per studies done today by gastroenterology. Exam - Constitutional Vitals: Period Temp Pulse Resp BP Sys/Leiva Pulse Ox Last 24 Hr 97.2 F-98.6 F 75-93 12-20 101-159/58-108 96-99 General appearance: normal weight - Head Head exam: Present: normocephalic - Eye Eye exam: Present: EOMI Pupils: Present: DORI - ENT ENT exam: Present: normal external ear exam - Neck Neck exam: Present: normal inspection - Respiratory Respiratory exam: Present: clear to auscultation bilaterally - Cardiovascular Cardiovascular exam: Present: regular rate and rhythm - GI/Abdominal GI/Abdominal exam: Present: normal bowel sounds, soft, other (Tender to palpation mostly in the epigastric area and left upper quadrant) - Extremities Exam Extremities exam: Present: full ROM - Neurological Exam Neurological exam: Present: alert, oriented X3, CN II-XII intact - Psychiatric Psychiatric exam: Present: normal affect, normal mood - Skin Skin exam: Present: normal color, warm, dry Results - Labs CBC & BMP: 02/15/17 11:47 02/15/17 11:47 Lab Results: I have reviewed the past 24 hour labs
[2017-02-15] MEDS: SODIUM CHLORIDE 0.9% 1,000 ML IV SCH (16:44)
[2017-02-15] MEDS: INSULIN GLARGINE 100 UNIT/ML SUBCUT SCH (20:26)
[2017-02-15] MEDS ORDERED: PANTOPRAZOLE 40 MG VIAL IV SCH (21:00)
[2017-02-16] MEDS: ERYTHROMYCIN ETHYLSUCCINATE 40 MG/ML 100 ML/BOTTLE PO SCH (05:26)
[2017-02-16] MEDS: SODIUM CHLORIDE 0.9% 1,000 ML IV SCH ×2 (05:27→21:42)
[2017-02-16] MEDS: AZTREONAM 1,000 MG in SODIUM CHLORIDE 0.9% 50 ML IV SCH ×3 (06:03→22:09)
--- NOTE | 2017-02-16 07:04 | Gastrointestinal Progress Note ---
Assessment and Plan (1) Intractable nausea and vomiting Status: Chronic Assessment and plan: Endoscopy today which demonstrated the following: This is a patient with moderate to large amount of retained green fluid in her stomach consistent with gastroparesis, there is some question as to whether or not the patient is allergic to Reglan and she has hives when exposed to this medication. For right now we will switch her to erythromycin to see if this helps. She is nauseous. Will try full liquid diet and acid suppression with twice daily Protonix. Observation in house until she is improved. She may be a candidate for gastric pacemaker down the road. This patient needs to be off of narcotics entirely. 02/16/17-- She is on erythromycin which appears to be doing adequately for her in the elixir form, will try advancing her diet to a solid diet as well as switching her over to erythromycin 250 mg tablets with meals. She tolerates this today she could certainly be discharged at the end of the day or tomorrow, from a GI standpoint. A prescription for the erythromycin has been written in the left in the front of the chart along with Protonix 40 mg twice daily. She can follow-up with me as needed in the office. I written her solid diet to see if she will tolerate this with the oral erythromycin and oral Protonix as mentioned above. Current Visit: Yes Qualifiers: Vomiting type: unspecified Qualified Code(s): R11.2 - Nausea with vomiting , unspecified (2) Gastritis Status: Acute Assessment and plan: Mild gastritis is seen on upper endoscopy, biopsies taken to rule out Helicobacter pyloric. This is likely stasis gastritis from the underlying gastroparesis. The patient does not appear to be on any medications to treat this yet, she is allergic to Reglan by report. We will try erythromycin and see if this helps. There is a drug interaction with clindamycin will discontinue that latter medication. 02/16/17--Doing well from the standpoint, able to tolerate full liquid diet well , blood sugars in the 150s-180s range as mentioned above. Current Visit: No (3) Gastroparesis Status: Acute Assessment and plan: As noted above, this is likely the patient's cause for her chronic nausea and vomiting. We will see how she does with erythromycin as an emptying agent. This is likely to make her nausea worse in the short-term. She states that she is allergic to Reglan. 02/16/17--She appears to be doing well on the erythromycin, we will see if she tolerates this in the tablet form she was given the suspension yesterday (EryPed ). Current Visit: Yes Gastroenterology - PN: Subj Interval history: Patient seems to be doing better with less abdominal pain and no problems keeping down the full liquid diet. She is on erythromycin which appears to be doing adequately for her in the elixir form, will try advancing her diet to a solid diet as well as switching her over to erythromycin 250 mg tablets with meals. She tolerates this today she could certainly be discharged at the end of the day or tomorrow, from a GI standpoint. A prescription for the erythromycin has been written in the left in the front of the chart along with Protonix 40 mg twice daily. She can follow-up with me as needed in the office. Blood sugars at this time are ranging in the 150s-180s typically with occasional readings up to 360. Control was emphasized as being important in keeping down the gastroparesis. Exam (Progress Note) - Constitutional Vitals: Period Temp Pulse Resp BP Sys/Leiva Pulse Ox Last 24 Hr 96.9 F-98.6 F 75-88 12-18 109-159/64-108 95-99 General appearance: mild distress - Head Head exam: Present: normocephalic - Eye Eye exam: Present: EOMI Pupils: Present: DORI - Respiratory Respiratory exam: Present: clear to auscultation bilaterally. Absent: rhonchi, stridor, wheezes - Cardiovascular Cardiovascular exam: Present: regular rate and rhythm - GI/Abdominal GI/Abdominal exam: Present: normal bowel sounds, soft. Absent: distended, guarding, tenderness, rebound - Extremities Exam Extremities exam: Absent: edema - Back Exam Back exam: Present: normal inspection - Neurological Exam Neurological exam: Present: alert, oriented X3 - Psychiatric Psychiatric exam: Present: normal affect, normal mood - Skin Skin exam: Present: warm Results - Labs CBC & BMP: 02/15/17 11:47 02/15/17 11:47
[2017-02-16] MEDS: ERYTHROMYCIN BASE 250 MG TABLET PO SCH ×4 (07:52→21:46)
[2017-02-16] MEDS: ENOXAPARIN 40 MG/0.4 ML SYRINGE SUBCUT SCH (08:01)
[2017-02-16] MEDS: INSULIN LISPRO 100 UNIT/ML SUBCUT SCH ×4 (08:31→21:47)
[2017-02-16] MEDS: ACETAMINOPHEN 325 MG TABLET PO PRN ×2 (08:31→17:52)
--- NOTE | 2017-02-16 09:56 | Hospitalist Progress Note ---
Assessment and Plan (1) Abdominal pain Status: Acute Assessment and plan: Her abdominal pain is less today than yesterday. She was begun on oral erythromycin by gastroenterology. Current Visit: Yes Qualifiers: Abdominal location: right upper quadrant Qualified Code(s): R10.11 - Right upper quadrant pain (2) UTI (urinary tract infection) Status: Acute Assessment and plan: Urine cultures have demonstrated E coli. Sensitivities are pending. She is presently being treated with intravenous aztreonam. Current Visit: No Qualifiers: Urinary tract infection type: site unspecified Hematuria presence: without hematuria Qualified Code(s): N39.0 - Urinary tract infection, site not specified (3) Gastroparesis Status: Acute Assessment and plan: See above. Current Visit: Yes (4) Diabetes type 1, controlled Status: Acute Assessment and plan: Her blood glucose today is 271. She is presently being treated with glargine insulin 12 units subcutaneous before bedtime and sliding scale insulin coverage. I will increase her glargine insulin to 18 units subcutaneous nightly. Current Visit: Yes Qualifiers: Diabetes mellitus complication status: with other specified complication Qualified Code(s): E10.69 - Type 1 diabetes mellitus with other specified complication (5) Gram-positive cocci bacteremia Status: Acute Assessment and plan: Speciation and sensitivities are pending. Patient has been begun on intravenous clindamycin. Current Visit: Yes Hospitalist: Subjective Interval history: Patient states that she feels somewhat better today. She is having less abdominal pain and less nausea and vomiting. She was begun yesterday on erythromycin by gastroenterology. Exam - Constitutional Vitals: Period Temp Pulse Resp BP Sys/Leiva Pulse Ox Last 24 Hr 96.9 F-98.6 F 77-88 15-18 109-139/64-97 95-99 General appearance: no acute distress - Head Head exam: Present: normal inspection - Neck Neck exam: Present: normal inspection - Respiratory Respiratory exam: Present: clear to auscultation bilaterally - Cardiovascular Cardiovascular exam: Present: regular rate and rhythm - GI/Abdominal GI/Abdominal exam: Present: normal bowel sounds, soft, other (Nontender with no palpable masses or hepatosplenomegaly.) - Extremities Exam Extremities exam: Present: normal inspection - Skin Skin exam: Present: normal color, warm, intact Results - Labs CBC & BMP: 02/15/17 11:47 02/15/17 11:47
[2017-02-16] MEDS: CLINDAMYCIN INJ 600 MG in PREMIX 1 EACH IV SCH ×2 (10:32→17:53)
--- NOTE | 2017-02-16 11:19 | Pathology Report from [facility] ---
[facility] ACCESSION # : [id number] PATIENT NAME : Jorge Sal ORDERING DR : Ben Carlisle MD CLINICAL HX: N/V POST-OP DX: same SPECIMEN INFO: GIO GROSS DESCRIPTION: Received in formalin labeled JORGE SAL is a 0.9 x 0.3 cm aggregate of curtis tissue submitted in one cassette. DIAGNOSIS FOR JORGE SAL: GASTRIC, BIOPSIES: Mild active and moderate chronic gastritis. H. pylori not seen on H&E or special stain with appropriate control performed. COLLECTED DATE: 02/15/2017 [facility] REPORT DATE: 02/16/2017 ELECTRONICALLY SIGNED BY: Shanon Bajwa M.D. 02/16/2017 - 10:03:07 RADHA
[2017-02-16] MEDS ORDERED: PANTOPRAZOLE 40 MG TABLET PO ONE (17:51)
[2017-02-16] MEDS: PANTOPRAZOLE 40 MG TABLET PO SCH ×2 (17:52→18:42)
[2017-02-16] MEDS: INSULIN GLARGINE 100 UNIT/ML SUBCUT SCH (21:47)
[2017-02-17] MEDS: CLINDAMYCIN INJ 600 MG in PREMIX 1 EACH IV SCH ×2 (02:42→09:04)
[2017-02-17] MEDS: PANTOPRAZOLE 40 MG TABLET PO SCH ×2 (06:41→18:01)
[2017-02-17] MEDS: AZTREONAM 1,000 MG in SODIUM CHLORIDE 0.9% 50 ML IV SCH (06:42)
[2017-02-17] MEDS: SODIUM CHLORIDE 0.9% 1,000 ML IV SCH ×3 (06:45→18:15)
--- NOTE | 2017-02-17 06:52 | Gastrointestinal Progress Note ---
Assessment and Plan (1) Intractable nausea and vomiting Status: Chronic Assessment and plan: Endoscopy today which demonstrated the following: This is a patient with moderate to large amount of retained green fluid in her stomach consistent with gastroparesis, there is some question as to whether or not the patient is allergic to Reglan and she has hives when exposed to this medication. For right now we will switch her to erythromycin to see if this helps. She is nauseous. Will try full liquid diet and acid suppression with twice daily Protonix. Observation in house until she is improved. She may be a candidate for gastric pacemaker down the road. This patient needs to be off of narcotics entirely. 02/16/17-- She is on erythromycin which appears to be doing adequately for her in the elixir form, will try advancing her diet to a solid diet as well as switching her over to erythromycin 250 mg tablets with meals. She tolerates this today she could certainly be discharged at the end of the day or tomorrow, from a GI standpoint. A prescription for the erythromycin has been written in the left in the front of the chart along with Protonix 40 mg twice daily. She can follow-up with me as needed in the office. I written her solid diet to see if she will tolerate this with the oral erythromycin and oral Protonix as mentioned above. 02/17/17--the patient has been able to tolerate the oral erythromycin, she is able to be discharged in my opinion at this point. She can follow-up with me as needed in the office. My card was given to the patient at this time in order to make a follow-up appointment if she desires. The prescription has been written and is in the front of the chart for use as an outpatient including Protonix 40 mg twice daily and erythromycin 250 mg p.o. 3 times daily with meals. Note that this medication can produce mild nausea and abdominal cramping as well as occasional arrhythmias. The patient has failed Reglan due to allergic reaction that she describes as hives. Current Visit: Yes Qualifiers: Vomiting type: unspecified Qualified Code(s): R11.2 - Nausea with vomiting , unspecified (2) Gastritis Status: Acute Assessment and plan: Mild gastritis is seen on upper endoscopy, biopsies taken to rule out Helicobacter pyloric. This is likely stasis gastritis from the underlying gastroparesis. The patient does not appear to be on any medications to treat this yet, she is allergic to Reglan by report. We will try erythromycin and see if this helps. There is a drug interaction with clindamycin will discontinue that latter medication. 02/16/17--Doing well from the standpoint, able to tolerate full liquid diet well , blood sugars in the 150s-180s range as mentioned above. 02/17/17--Now able to eat a diabetic diet and she can certainly be discharged today. Thank you for this consultation will sign off at this time. Follow-up with me as needed. Current Visit: No (3) Gastroparesis Status: Acute Assessment and plan: As noted above, this is likely the patient's cause for her chronic nausea and vomiting. We will see how she does with erythromycin as an emptying agent. This is likely to make her nausea worse in the short-term. She states that she is allergic to Reglan. 02/16/17--She appears to be doing well on the erythromycin, we will see if she tolerates this in the tablet form she was given the suspension yesterday (EryPed ). 02/17/17--The patient is able to take her oral erythromycin. Current Visit: Yes Gastroenterology - PN: Subj Interval history: The patient has made the transition to oral intake well, is taking her Protonix orally now as well as erythromycin. Once again the patient was educated as to her ability to obtain Protonix twice daily being relatively easy however the erythromycin may be too expensive and she might have to query a [place] pharmacy or another pharmacy outside the [facility] to obtain this at a reasonable dempsey. She can take oral erythromycin in pill form as this will be the most economical way to take the medication that she needs to help with her gastroparesis. Exam (Progress Note) - Constitutional Vitals: Period Temp Pulse Resp BP Sys/Leiva Pulse Ox Last 24 Hr 97.4 F-97.8 F 79-84 18-20 112-131/73-90 97-99 - Head Head exam: Present: normocephalic - Eye Eye exam: Present: EOMI Pupils: Present: DORI - Respiratory Respiratory exam: Present: clear to auscultation bilaterally. Absent: rhonchi, stridor, wheezes - Cardiovascular Cardiovascular exam: Present: regular rate and rhythm - GI/Abdominal GI/Abdominal exam: Present: normal bowel sounds, tenderness (Mild tenderness in the epigastric region), soft. Absent: distended, firm, guarding - Extremities Exam Extremities exam: Absent: edema - Neurological Exam Neurological exam: Present: alert, oriented X3 - Skin Skin exam: Present: normal color Results - Labs CBC & BMP: 02/15/17 11:47 02/15/17 11:47
[2017-02-17 07:37] LABS: Basophils # 0.1 10*3/uL (0.0-0.2); Basophils % 0.7 % (0.0-0.8); Eosinophils # 0.5 10*3/uL (0.0-0.87); Eosinophils % 6.9 % (0.00-10.9); Hematocrit 36.4 VOL% (35.7-47.0); Hemoglobin 12.8 GM/DL (12.0-16.0); Immature Granulocytes % 0.3 %; Immature Granulocytes Absolute 0.02 #; Lymphocytes # 2.9 10*3/uL (1.4-4.0); Lymphocytes % 40.6 % (21.3-54.2); Mean Corpuscular HGB Conc 35.2 GM/DL (32-36); Mean Corpuscular Hemoglobin 31 PG (27-34); Mean Corpuscular Volume 88.8 FL (87-102); Mean Platelet Volume 10.3 FL (9.6-12.0); Monocytes # 0.7 10*3/uL (0.11-0.8); Monocytes % 9.5 % (1.7-12.7); Platelet Count 325 T/CUMM (130-400); Red Cell Distribution Width 12.4 % (9.3-17.3); White Blood Count 7.2 T/CUMM (4-12)
[2017-02-17 08:10] LABS: Calcium 8.7 MG/DL (8.5-10.1); Osmolality,Calculated 281.3 MOS/KG (273-304); Potassium 3.6 MMOL/L (3.5-5.1)
[2017-02-17] MEDS: ERYTHROMYCIN BASE 250 MG TABLET PO SCH ×4 (08:18→20:41)
[2017-02-17] MEDS: ENOXAPARIN 40 MG/0.4 ML SYRINGE SUBCUT SCH (08:18)
[2017-02-17] MEDS: INSULIN LISPRO 100 UNIT/ML SUBCUT SCH ×4 (08:18→20:48)
--- NOTE | 2017-02-17 10:23 | Hospitalist Progress Note ---
Assessment and Plan (1) Abdominal pain Status: Acute Assessment and plan: She was begun on oral erythromycin by gastroenterology. He is feeling better today. Current Visit: Yes Qualifiers: Abdominal location: right upper quadrant Qualified Code(s): R10.11 - Right upper quadrant pain (2) UTI (urinary tract infection) Status: Acute Assessment and plan: Urine cultures have demonstrated E coli. She is presently being treated with intravenous aztreonam. Current Visit: No Qualifiers: Urinary tract infection type: site unspecified Hematuria presence: without hematuria Qualified Code(s): N39.0 - Urinary tract infection, site not specified (3) Gastroparesis Status: Acute Assessment and plan: See above. Current Visit: Yes (4) Diabetes type 1, controlled Status: Acute Assessment and plan: Her blood glucose today is 155. I will continue glargine insulin and sliding scale insulin coverage. Current Visit: Yes Qualifiers: Diabetes mellitus complication status: with other specified complication Qualified Code(s): E10.69 - Type 1 diabetes mellitus with other specified complication (5) Gram-positive cocci bacteremia Status: Acute Assessment and plan: Patient has been begun on intravenous clindamycin. I have requested an infectious diseases consultation. Current Visit: Yes Hospitalist: Subjective Interval history: Patient was begun on oral erythromycin by gastroenterology. She appears to be tolerating this medication well and is not presently complaining of abdominal pain. Urine cultures have demonstrated E. coli. Blood cultures have demonstrated gram-positive cocci. She is presently being treated with intravenous clindamycin and aztreonam. I have requested an infectious diseases consultation. Exam - Constitutional Vitals: Period Temp Pulse Resp BP Sys/Leiva Pulse Ox Last 24 Hr 97.4 F-97.8 F 79-84 18-20 112-131/73-89 98-100 General appearance: no acute distress - Head Head exam: Present: normal inspection - Neck Neck exam: Present: normal inspection - Respiratory Respiratory exam: Present: clear to auscultation bilaterally - Cardiovascular Cardiovascular exam: Present: regular rate and rhythm - GI/Abdominal GI/Abdominal exam: Present: normal bowel sounds, soft, other (Nontender with no palpable masses or hepatosplenomegaly.) - Extremities Exam Extremities exam: Present: normal inspection - Skin Skin exam: Present: normal color, warm, intact Results - Labs CBC & BMP: 02/17/17 06:13 02/17/17 06:13
--- NOTE | 2017-02-17 12:11 | Infectious Disease Consult ---
Assessment and Plan (1) Gram-positive cocci bacteremia Status: Acute Assessment and plan: Preliminarily to Streptococcus angina versus according to the lab. Repeat blood cultures on 1 day later and negative at day 3. Recommend agents: 1. Instead of clindamycin I am going to try the patient on ceftriaxone 1 g daily. Only small chance of cross reactivity with amoxicillin. And according to the patient that amoxicillin allergy was not life-threatening 2. Echocardiogram for completeness sake 2. Follow-up finalized results of cultures and adjust antibiotics as necessary Thank you very much for the consult. Will follow. Current Visit: Yes (2) UTI (urinary tract infection) Status: Acute Assessment and plan: E. coli UTI. Based on the patient's symptoms [left flank pain] and clinical findings [left CVA tenderness] I think she has left pyelonephritis. I am surprised the CT scan was unremarkable. Recommendations: The ceftriaxone above will cover the E. coli. Will discontinue aztreonam. Current Visit: Yes (3) Uncontrolled type 1 diabetes mellitus Status: Chronic Current Visit: No History of Present Illness Chief complaint: Positive blood cultures History of present illness: Ms. Dahl is a 21 year old female with insulin-dependent diabetes diagnosed at 4 years of age came in because of abdominal pain present for 2 weeks. The pain was associated with nausea, anorexia and vomiting. She has not had any fever or chills. She denied increased urinary frequency, dysuria, and hematuria. Because the pain got unbearable she finally decided to come to the hospital towards the end of last week. Urine culture came up positive for E. coli and now she has blood cultures positive for Streptococcus. I am asked to assist with management. She has multiple allergies listed including to amoxicillin and vancomycin. She did not mention vancomycin to me but is in the chart. The nurse went back and asked that she specifically said she has never gotten vancomycin. Regarding the amoxicillin the chart says that it caused anaphylaxis with her throat closing up, but when the nurse went back to ask her she confirmed what she told me which was that it caused a rash as a child. Home Medications Medication Instructions Recorded Confirmed Type Insulin Aspart [NovoLOG FlexPen] 0 unit SUBCUT DIRECTED 02/12/17 02/12/17 History Insulin Glargine [Lantus] 12 unit SUBCUT BEDTIME 02/12/17 02/12/17 History Loratadine [Claritin] 10 mg PO QAM 02/12/17 02/12/17 History Allergies Allergy/AdvReac Type Severity Reaction Status Date / Time almond Allergy ANAPHYLAXIS Verified 11/21/16 11:19 Amoxicillin Allergy ANAPHYLAXIS Verified 11/21/16 11:19 metoclopramide [From Reglan] Allergy HIVES Verified 11/21/16 11:19 morphine Allergy HIVES Verified 11/21/16 11:19 vancomycin Allergy ITCHING Verified 02/14/17 07:15 cinnamon Allergy ANAPHYLAXIS Uncoded 11/21/16 11:19 12 point system: reviewed and no additional remarkable complaints except as stated (Per HPI) Medical,Surgical,& Family Hx - Medical History Neurology: History of: Seizures Endocrine: History of: Diabetes Mellitus (IDDM) (type 1) Rheumatology: History of;: Psoriasis Gastrointestinal: History of: Pancreatitis (chronic), GI Problems (gastrparesis) Other: History of: Eczema, Skin Problems (psoriasis ) - Surgical History Reproductive Surgeries: Surgical HX of;: Dilation and Curettage - Family History Family History: Reports;: Family Diabetes - Social History Smoking Status: Never smoker Frequency of Alcohol Use: None Type of Drug Use: Marijuana Infectious Disease Exam H&P - Constitutional Vitals: Vital Signs Temp Pulse Resp BP Pulse Ox 99.2 F 97 H 18 120/63 100 02/17/17 11:56 02/17/17 11:56 02/17/17 11:56 02/17/17 11:56 02/17/17 11:56 Intake and Output 02/16/17 02/17/17 02/17/17 23:59 07:59 15:59 Intake Total 1530 / 1530 1320 / 1320 Balance 1530 / 1530 1320 / 1320 Intake: IV 1050 / 1050 1200 / 1200 Azactam 1,000 mg In Ns 50 50 / 50 100 / 100 ml @ 200 mls/hr IV Q8H RENARD Rx#:[id number] Cleocin Inj 600 mg In 100 / 100 Premix 1 Each @ 100 mls/ hr IV Q8H RENARD Rx#: [id number] Ns 1,000 ml @ 125 mls/hr 1000 / 1000 1000 / 1000 IV .Q8H RENARD Rx#: [id number] Oral 480 / 480 120 / 120 Other: Voiding Method Toilet Toilet # Voids 4 1 # Bowel Movements 0 1 Exam: General: Patient a bit tearful on the phone when I walked into the room, but she is nontoxic appearing HEENT: Mucous membranes pink and moist, anicteric acyanotic, DORI, no oropharyngeal exudates Neck: Supple, no thyroid gland enlargement, no lymphadenopathy Respiratory system: Breath sounds vesicular, no crepitations or wheezes Cardiovascular: Normal S1 and S2, no murmurs appreciated Abdomen: Normal bowel sounds, soft, tender in the left flank region, no organomegaly or mass Genitourinary: No suprapubic pain or bladder distention, moderate left CVA tenderness Extremities: no edema Skin: Erythematous plaque-like rash scattered over elbows knees and in patches over her body Reports - Labs CBC & BMP: 02/17/17 06:13 02/17/17 06:13 Labs: Laboratory Results - last 24 hr 02/16/17 02/16/17 02/16/17 14:11 16:09 20:48 WBC RBC Hgb Hct MCV MCH MCHC RDW Plt Count MPV Neut % (Auto) Lymph % (Auto) Owen % (Auto) Eos % (Auto) Baso % (Auto) Neut # (Auto) Lymph # (Auto) Owen # (Auto) Eos # (Auto) Baso # (Auto) Immature Gran % Nucleated RBC % Immature Gran # Nucleated RBCs # Immature Plt Fraction Sodium Potassium Chloride Carbon Dioxide Anion Gap BUN Creatinine GFR Calculation BUN/Creatinine Ratio Glucose POC Glucose 293 H 353 H 240 H Calculated Osmolality Calcium 02/17/17 02/17/17 02/17/17 06:13 06:13 07:45 WBC 7.2 RBC 4.10 Hgb 12.8 Hct 36.4 MCV 88.8 MCH 31 MCHC 35.2 RDW 12.4 Plt Count 325 D MPV 10.3 Neut % (Auto) 42.0 Lymph % (Auto) 40.6 Owen % (Auto) 9.5 Eos % (Auto) 6.9 Baso % (Auto) 0.7 Neut # (Auto) 3.0 Lymph # (Auto) 2.9 Owen # (Auto) 0.7 Eos # (Auto) 0.5 Baso # (Auto) 0.1 Immature Gran % 0.3 Nucleated RBC % 0.0 Immature Gran # 0.02 Nucleated RBCs # 0.00 Immature Plt Fraction 0.0 Sodium 141 Potassium 3.6 Chloride 107 Carbon Dioxide 29 Anion Gap 8.6 BUN 8 Creatinine 0.50 L GFR Calculation 145 BUN/Creatinine Ratio 16.00 Glucose 154 H POC Glucose 155 H Calculated Osmolality 281.3 Calcium 8.7 02/17/17 11:25 WBC RBC Hgb Hct MCV MCH MCHC RDW Plt Count MPV Neut % (Auto) Lymph % (Auto) Owen % (Auto) Eos % (Auto) Baso % (Auto) Neut # (Auto) Lymph # (Auto) Owen # (Auto) Eos # (Auto) Baso # (Auto) Immature Gran % Nucleated RBC % Immature Gran # Nucleated RBCs # Immature Plt Fraction Sodium Potassium Chloride Carbon Dioxide Anion Gap BUN Creatinine GFR Calculation BUN/Creatinine Ratio Glucose POC Glucose 335 H Calculated Osmolality Calcium - Reports Microbiology: Microbiology 02/12/17 20:59 Blood Culture - Final Blood Streptococcus anginosus group 02/12/17 20:59 Blood Culture - Final Blood Streptococcus anginosus group 02/13/17 13:17 Blood Culture - Preliminary Blood No growth at 3 days 02/13/17 13:23 Blood Culture - Preliminary Blood No growth at 3 days - Diagnostic Findings Procedure: CT Abdomen and Pelvis: report reviewed by me (No report of inflammation around the kidneys)
[2017-02-17] MEDS ORDERED: cefTRIAXone 1,000 MG in SODIUM CHLORIDE 0.9% 100 ML IV SCH (12:30)
[2017-02-17] MEDS: INSULIN GLARGINE 100 UNIT/ML SUBCUT SCH (20:47)
[2017-02-18] MEDS: SODIUM CHLORIDE 0.9% 1,000 ML IV SCH ×3 (02:07→17:55)
[2017-02-18] MEDS: PANTOPRAZOLE 40 MG TABLET PO SCH ×2 (06:09→18:09)
[2017-02-18] MEDS: ERYTHROMYCIN BASE 250 MG TABLET PO SCH ×4 (08:23→20:29)
[2017-02-18] MEDS: ENOXAPARIN 40 MG/0.4 ML SYRINGE SUBCUT SCH (08:24)
[2017-02-18] MEDS: INSULIN LISPRO 100 UNIT/ML SUBCUT SCH ×4 (13:10→20:30)
--- NOTE | 2017-02-18 15:48 | Infectious Disease Progress ---
Assessment and Plan (1) Gram-positive cocci bacteremia Status: Acute Assessment and plan: Streptococcus anginosus isolated. Repeat blood cultures negative. TTE done but result pending. Recommend agents: 1. Continue ceftriaxone 1 g daily, last dose on February 26 2. Consult social media senior associate to arrange outpatient antibiotic therapy at the infusion center 3. PICC placement to facilitate IV antibiotic therapy as patient has poor peripheral IV access Current Visit: Yes (2) UTI (urinary tract infection) Status: Acute Assessment and plan: E. coli UTI. Based on the patient's symptoms [left flank pain] and clinical findings [left CVA tenderness] I think she has left pyelonephritis. She seemed better today Recommendations: The ceftriaxone above will cover the E. coli. Current Visit: Yes (3) Uncontrolled type 1 diabetes mellitus Status: Chronic Current Visit: No Infectious Disease - PN: Subj Interval history: Patient feeling better today, wondering when she can go home. She has not an allergic reaction to the ceftriaxone. No fever. Less pain to left flank region. No nausea vomiting or diarrhea. Infectious Disease Exam (PN) - Constitutional Vitals: Temp Pulse Resp BP Pulse Ox 97.7 F 84 20 124/82 98 02/18/17 11:54 02/18/17 11:54 02/18/17 11:54 02/18/17 11:54 02/18/17 11:54 General appearance: no acute distress Exam: General appearance: no acute distress - Eye Eye exam: Present: EOMI. no icterus Pupils: Present: DORI - ENT ENT exam: no oral exudates - Respiratory Respiratory exam: vesicular BS, no crepitations or wheezes - Cardiovascular Cardiovascular exam: regular rate and rhythm, no murmurs - GI/Abdominal GI/Abdominal exam: normal bowel sounds, soft, minimal left flank tenderness, no organomegaly or mass, mild left CVA tenderness - Extremities Exam Extremities exam: no edema - Skin Skin exam: no rash Results - Labs CBC & BMP: 02/17/17 06:13 02/17/17 06:13 Lab Results: I have reviewed the past 24 hour labs
--- NOTE | 2017-02-18 15:57 | ECHO Report ---
Erin Dahl Exam Date: 02/17/2017 16:06 Referring Physician: Technologist: Livier Barrios Age: 21 Ht (in): 66 Wt (lb): 165 Gender: F Exam Location: [facility] Echo Indications: Gram positive, streptococcus bacteremia BP: 120 / 63 HR: 84 Rhythm: Sinus Technical Quality: IMPRESSIONS Left ventricular ejection fraction is estimated at 60 %. Diastolic parameters appear to be most consistent normal diastolic parameters. MEASUREMENTS (Male / Female) Normal Values 2D ECHO LV Diastolic Diameter PLAX 4.3 cm 4.2 - 5.9 / 3.9 - 5.3 cm LV Systolic Diameter PLAX 2.8 cm IVS Diastolic Thickness 1.0 cm 0.6 - 1.0 / 0.6 - 0.9 cm LVPW Diastolic Thickness 0.9 cm 0.6 - 1.0 / 0.6 - 0.9 cm RV Internal Dim ED PLAX 2.1 cm Aortic Root Diameter 2.1 cm LA Systolic Diameter LX 3.2 cm 3.0 - 4.0 / 2.7 - 3.8 cm DOPPLER TR Peak Velocity 208.0 cm/s TR Peak Gradient 17.3 mmHg FINDINGS Left Ventricle Normal left ventricular cavity size. Left ventricular ejection fraction is estimated at 60 %. There is no regional wall motion abnormality. Diastolic parameters appear to be most consistent normal diastolic parameters Right Ventricle Normal right ventricular size. Right Atrium Normal right atrial size. Left Atrium Normal left atrial size. Mitral Valve Morphologically normal mitral valve. Aortic Valve The aortic valve is trileaflet and has normal motion. Tricuspid Valve Morphologically normal tricuspid valve. Trace tricuspid valve regurgitation. Pulmonic Valve Morphologically normal pulmonic valve. Pericardium No pericardial effusion. Aorta Normal size aortic root and proximal ascending aorta. Yamel Segura (Electronically Signed) Final Date: 18 February 2017 15:56
--- NOTE | 2017-02-18 16:56 | Post Interventional Procedure ---
Pre-op diagnosis: UTI, gram +ve cocci bacteremia Post-op diagnosis: same Procedure: PICC placement Contrast: none Flouroscopy: 0.5 min Radiologist: Matt Peace Anesthesia: local Specimens: none sent Estimated blood loss: minimal (3 mL) Complications: none Condition: stable Description/Findings: left arm 5 FR dual lumen PICC placement done and ready for use Assessment and Plan - Time spent with patient Time spent with patient: Less than 30 minutes
--- NOTE | 2017-02-18 17:00 | Interventional Radiology Rpt ---
IR PICC line insertion, US guide vascular access IR PICC Placement Peripherally-inserted central catheter (PICC) placement using ultrasound and fluoroscopic guidance Ultrasound of the left upper extremity Clinical Information: 21-year-old female with UTI and gram-positive bacteremia. Patient has difficult/limited peripheral venous access PICC line is requested for continued IV antibiotic administration. Physician: Dr. Peace Procedure: The patient was advised of the benefits, risks, and alternatives of the procedure and informed consent was obtained. A time out was performed with verification of the patient's name, MRN, site of procedure, and type of procedure to be performed. The patient was positioned in the supine position on the angiographic table. The site was prepped and draped in the usual sterile fashion. Additionally, maximal sterile barrier technique was employed for the procedure. A bulking machine operator radiograph reveals no relevant abnormality. Ultrasound examination of the left arm demonstrates patent and compressible brachial and basilic veins. The left arm was prepped and draped in the usual sterile fashion. The left basilic vein was again identified. Using ultrasound guidance, a 21 gauge needle was used to access the vein. A permanent ultrasound recording of vascular access was obtained for the patient's record. A 0.018" cope wire was then advanced into the vein. The needle was exchanged for a 5 Nauruan peel-away sheath. A 5 Nauruan double lumen Bard Solo PICC catheter was measured and trimmed to the 40 cm attila. The PICC line was advanced through the sheath and into the central circulation. The catheter tip was positioned at the cavo-atrial junction. The peel-away sheath was then removed. At the conclusion of the procedure, the catheter was secured in place using a Stat-Lock device. A sterile dressing was applied. The lumens aspirate and flush freely. The catheter is ready for immediate use. The patient tolerated the procedure well and was returned to the PRU in stable condition. EBL: < 5 mL. Complications: None. Fluoroscopy time: 0.5 minutes Total number of images for this study: 4 Conclusion: Successful placement of a 5 Nauruan double lumen Bard Solo power injectable PICC via the left basilic vein. The catheter is ready for immediate use. PROCEDURE INTERPRETED AT [facility] DEPARTMENT OF RADIOLOGY Final Report Signed by: Matt Peace
--- NOTE | 2017-02-18 18:58 | Hospitalist Progress Note ---
Assessment and Plan (1) Gram-positive cocci bacteremia Status: Acute Assessment and plan: Due to strep bacteria. Currently on Rocephin. PICC line has been placed for outpatient therapy as directed per ID. Current Visit: Yes (2) Pyelonephritis Status: Acute Assessment and plan: Due to E. coli, sensitive to Rocephin. Current Visit: Yes (3) Uncontrolled type 1 diabetes mellitus Status: Chronic Assessment and plan: Blood sugars have been erratic. She said usually they are in the low 100s in the morning on 12 units of Lantus daily. Elevation of her sugars probably due to pyelonephritis and bacteremia. She was told to titrate her Lantus when she goes home to [place] morning fasting blood glucose in the low 100s. As she recovers from her infections she will have to wean it back down. Current Visit: No (4) Gastroparesis Status: Acute Current Visit: Yes Hospitalist: Subjective Interval history: Patient says she feels better and wants to go home. She received her PICC line. Anticipate she will be set up for outpatient Rocephin tomorrow. Exam - Constitutional Vitals: Period Temp Pulse Resp BP Sys/Leiva Pulse Ox Last 24 Hr 97 F-98.3 F 78-93 16-20 99-143/62-94 98-100 - Cardiovascular Cardiovascular exam: Present: regular rate and rhythm - GI/Abdominal GI/Abdominal exam: Present: soft. Absent: tenderness Results - Labs CBC & BMP: 02/17/17 06:13 02/17/17 06:13
[2017-02-18] MEDS: INSULIN GLARGINE 100 UNIT/ML SUBCUT SCH (20:29)
[2017-02-19] MEDS: SODIUM CHLORIDE 0.9% 1,000 ML IV SCH (02:52)
[2017-02-19] MEDS: PANTOPRAZOLE 40 MG TABLET PO SCH (06:09)
[2017-02-19] MEDS: INSULIN LISPRO 100 UNIT/ML SUBCUT SCH ×2 (09:02→12:16)
[2017-02-19] MEDS: ERYTHROMYCIN BASE 250 MG TABLET PO SCH ×2 (09:02→12:17)
[2017-02-19] MEDS: ENOXAPARIN 40 MG/0.4 ML SYRINGE SUBCUT SCH (09:04)
--- NOTE | 2017-02-19 09:17 | Infectious Disease Progress ---
Assessment and Plan (1) Gram-positive cocci bacteremia Status: Acute Assessment and plan: Streptococcus anginosus isolated. Repeat blood cultures negative. TTE negative. Recommend agents: 1. Continue ceftriaxone 1 g daily, last dose on February 26 2. I can see her in the office 1 week after discharge Current Visit: Yes (2) UTI (urinary tract infection) Status: Acute Assessment and plan: E. coli UTI. Based on the patient's symptoms [left flank pain] and clinical findings [left CVA tenderness] I think she has left pyelonephritis. She seemed better today Recommendations: The ceftriaxone above will cover the E. coli. Current Visit: Yes (3) Uncontrolled type 1 diabetes mellitus Status: Chronic Current Visit: No Infectious Disease - PN: Subj Interval history: Patient doing okay, minimal left flank pain. No fever. Had PICC line placed yesterday. Anxious to go home today. Infectious Disease Exam (PN) - Constitutional Vitals: Temp Pulse Resp BP Pulse Ox 97.9 F 81 16 128/76 97 02/19/17 07:18 02/19/17 07:18 02/19/17 07:18 02/19/17 07:18 02/19/17 07:18 General appearance: no acute distress Exam: General appearance: no acute distress - Eye Eye exam: Present: EOMI. no icterus Pupils: Present: DORI - ENT ENT exam: no oral exudates - Respiratory Respiratory exam: vesicular BS, no crepitations or wheezes - Cardiovascular Cardiovascular exam: regular rate and rhythm, no murmurs - GI/Abdominal GI/Abdominal exam: normal bowel sounds, soft, minimal left flank tenderness, no organomegaly or mass, minimal left CVA tenderness - Extremities Exam Extremities exam: no edema - Skin Skin exam: no rash Results - Labs CBC & BMP: 02/17/17 06:13 02/17/17 06:13 Lab Results: I have reviewed the past 24 hour labs
--- NOTE | 2017-02-19 09:32 | Discharge Summary ---
Hospital Course - Hospital Course Hospital Course: 21-year-old girl with history of diabetes type 1 who was admitted to the ER for epigastric pain, nausea and vomiting started 2 days prior to presentation. During evaluation she was found to have a urinary tract infection I will suspected to be because of intractable nausea and vomiting even though she has a component of gastroparesis per gastroenterology. She was also found to have gram-negative bacteremia, blood cultures also came back positive for Streptococcus anginosus. Infectious disease was consulted and antibiotic management initiated and adjusted with culture report. On the day of discharge, most of her symptoms had resolved, infectious disease recommended a 2 week course of IV antibiotic as outpatient. PICC line placed on outpatient antibiotic arranged at an infusion center. To follow-up with infectious disease as outpatient as well as her primary care physician and endocrinology. Rest of her stay was uneventful. - Time spent with patient Time with patient DS: Greater than 30 minutes Specialty Discharge - Follow Up or Referrals Follow up with: Natasha Hester NP [[facility]] - 02/25/17 3:45 pm Discharge Plan - Discharge Data Disposition: Disch To Home/Self Care Condition at Discharge: Stable Discharge Diet: diabetic diet, heart healthy Activity: resume usual activities as tolerated - Discharge Medications New Insulin Glargine [Lantus] 18 unit SUBCUT BEDTIME unit cefTRIAXone [Rocephin] 1,000 mg IV Q24H #0 vial Continue Insulin Aspart [NovoLOG FlexPen] 0 unit SUBCUT DIRECTED Loratadine [Claritin] 10 mg PO QAM Discontinued Insulin Glargine [Lantus] 12 unit SUBCUT BEDTIME - Follow Up or Referral Follow Up: Natasha Hester NP [[facility]] - 02/25/17 3:45 pm - Forms/Instructions Instructions: Erythromycin (By mouth), Pantoprazole (By mouth), Diabetic gastroparesis (DC), Dehydration (DC), Peripherally Inserted Central Catheters and Midline Catheters (DC), Gastroenteritis (DC), Diabetic Hyperglycemia (DC) Additional Discharge Instructions: Follow-up with outpatient infusion center for IV antibiotics. Follow-up with PCP in 1-2 weeks. Follow-up with infectious disease as scheduled Exam - Constitutional Vitals: Period Temp Pulse Resp BP Sys/Leiva Pulse Ox Last 24 Hr 96.4 F-97.9 F 81-101 16-20 104-143/63-85 96-99 Discharge Results Labs on day of discharge: Labs from last 24 hours 02/19/17 02/19/17 02/19/17 07:23 01:18 00:32 POC Glucose 304 H 162 H 45 L* 02/18/17 02/18/17 02/18/17 20:25 15:36 11:43 POC Glucose 365 H 337 H 347 H DS: Provider Date of admission: 02/12/17 23:08 Primary care physician: . No PCP Attending physician on admission: Tanmay Kurtz MD Consults: 02/13/17 14:47 Consult to Pharmacy [CONS] Routine Reason for Pharmacy Consult: Dose/Manage Vancomycin 02/17/17 10:06 Consult to Physician [CONS] Routine Comment: E. Coli UTI; G+ bacteremia Consulting Provider: [place] Consult to Specialist Group: Infectious Disease When should Consulting Provider be notified: Now Person Notified: ROBERT Date Notified: 02/17/17 Time Notified: 10:36 Consult Notification Comment: 02/18/17 15:45 Consult to Case Mgmt/Social Srvs [CONS] Routine Reason for Case Mgmt/Social Srvs: Infusion Center Consult Comment: Ceftriaxone 1 g IV daily, last dose on February 26 Discharging clinician: Juan Jose Kirk MD
[2017-02-19 14:19] VITALS: BP 130/81
== END 2017-02-19 13:00 | disposition home or self-care (01) | DRG 48 ==
LOC: N.ED 19:35 → N.EDINP 23:08 → SUATTDRO 23:08 → N.5E 02-13 01:10
PROVIDERS: ADMIT Internal Medicine; ATTEND Internal Medicine

== ENCOUNTER 2017-03-31 18:22 | Inpatient (IN) ==
[2017-03-31] MEDS ORDERED: ONDANSETRON 4 MG/2 ML VIAL IV STA (19:37)
[2017-03-31] MEDS ORDERED: SODIUM CHLORIDE 0.9% 2,000 ML IV STA (19:37)
[2017-03-31] MEDS ORDERED: ONDANSETRON 4 MG/2 ML VIAL ONE (19:57)
[2017-03-31 21:13] LABS: ABG Base Excess -3.7 MMOL/L (-2.5-2.5); ABG HCO3 18.8 MMOL/L (20-26); ABG Oxygen Saturation 97.8 % (95-100); ABG PCO2 27.7 MM HG (35-48); ABG PH 7.449 (7.35-7.45); ABG PO2 97.9 MM HG (80-95); ABG TCO2 19.6 MMOL/L (23-27); Allen Test Positive; Pt O2 Delivery Device Room Air
[2017-03-31 22:31] LABS: Basophils # 0.1 10*3/uL (0.0-0.2); Basophils % 0.5 % (0.0-0.8); Eosinophils % 0.4 % (0.00-10.9); Hematocrit 38.8 VOL% (35.7-47.0); Hemoglobin 13.5 GM/DL (12.0-16.0); Immature Granulocytes % 0.3 %; Immature Granulocytes Absolute 0.03 #; Lymphocytes # 2.3 10*3/uL (1.4-4.0); Lymphocytes % 23.4 % (21.3-54.2); Mean Corpuscular HGB Conc 34.8 GM/DL (32-36); Mean Corpuscular Hemoglobin 31 PG (27-34); Mean Corpuscular Volume 88.2 FL (87-102); Mean Platelet Volume 10.3 FL (9.6-12.0); Monocytes # 0.7 10*3/uL (0.11-0.8); Monocytes % 7.2 % (1.7-12.7); Neutrophils # 6.8 10*3/uL (1.4-7.4); Neutrophils % 68.2 % (38.7-73.9); Platelet Count 353 T/CUMM (130-400); Red Cell Distribution Width 12.8 % (9.3-17.3)
[2017-03-31 22:56] LABS: Albumin 3.9 G/DL (3.4-5.0); Bilirubin,Total 0.7 MG/DL (0.2-1.0); Calcium 9.2 MG/DL (8.5-10.1); Osmolality,Calculated 275.1 MOS/KG (273-304); Total Protein 8.1 G/DL (6.4-8.3)
[2017-03-31] MEDS ORDERED: HYDROmorphone 2 MG/1 ML VIAL IV STA (23:01)
[2017-03-31 23:06] LABS: Apearance,Urine CLOUDY (Clear); Bilirubin,Urine Negative (Negative); Blood, Urine Negative (Negative); Glucose,Urine (UA) 50 mg/dL (Negative); Ketones,Urine 80 mg/dL (Negative); Mucus,Urine Moderate /LPF (Occasional); Nitrite,Urine Negative (Negative); Protein,Urine 30 MG/DL; RBC,Urine 7 /HPF (0-4); Squamous Epithelial Cell,Urine Moderate /HPF (0-10); Urine Color Amber (Yellow); Urine Specific Gravity 1.026 (1.001-1.035); Urine Urobilinogen < 2.0 EU/DL (0.2-1.0); WBC,Urine 72 /HPF (0-6)
[2017-03-31] MEDS ORDERED: HYDROmorphone 2 MG/1 ML VIAL ONE (23:14)
[2017-04-01] MEDS ORDERED: GLUCAGON 1 MG VIAL IM PRN (01:28)
[2017-04-01] MEDS ORDERED: DEXTROSE 50% 25 GM/50 ML VIAL IV PRN (01:28)
[2017-04-01] MEDS ORDERED: INSULIN REGULAR DRIP 100 ML IV SCH (01:30)
[2017-04-01] MEDS ORDERED: ACETAMINOPHEN 500 MG TABLET PO STA (02:15)
[2017-04-01] MEDS ORDERED: ACETAMINOPHEN 500 MG TABLET ONE ×2 (02:17→11:38)
[2017-04-01] MEDS ORDERED: DEXTROSE 5% NACL 0.45% 1,000 ML IV SCH (03:30)
[2017-04-01] MEDS: ONDANSETRON 4 MG/2 ML VIAL IV PRN ×3 (03:34→22:23)
[2017-04-01] MEDS: DEXTROSE 5% NACL 0.9% 1,000 ML IV SCH ×2 (03:48→11:46)
[2017-04-01 06:58] LABS: Calcium 7.9 MG/DL (8.5-10.1)
[2017-04-01 06:59] LABS: Osmolality,Calculated 278.8 MOS/KG (273-304); Potassium 3.6 MMOL/L (3.5-5.1)
[2017-04-01] MEDS ORDERED: INSULIN REGULAR 100 UNIT/ML SUBCUT SCH (07:30)
[2017-04-01 08:07] LABS: Calcium 8.4 MG/DL (8.5-10.1); Osmolality,Calculated 278.7 MOS/KG (273-304); Potassium 3.7 MMOL/L (3.5-5.1)
[2017-04-01] MEDS ORDERED: ACETAMINOPHEN 500 MG TABLET PO PRN (11:42)
[2017-04-01 12:04] LABS: Calcium 8.4 MG/DL (8.5-10.1); Osmolality,Calculated 276.5 MOS/KG (273-304); Potassium 3.8 MMOL/L (3.5-5.1)
[2017-04-01 15:20] LABS: Calcium 8.1 MG/DL (8.5-10.1); Osmolality,Calculated 275.5 MOS/KG (273-304); Potassium 3.7 MMOL/L (3.5-5.1)
[2017-04-01] MEDS: INSULIN GLARGINE 100 UNIT/ML SUBCUT SCH (16:49)
[2017-04-01] MEDS: INSULIN LISPRO 100 UNIT/ML SUBCUT SCH ×2 (16:50→21:23)
[2017-04-01 18:09] LABS: Calcium 8.2 MG/DL (8.5-10.1); Osmolality,Calculated 277.5 MOS/KG (273-304); Potassium 3.6 MMOL/L (3.5-5.1)
[2017-04-02 07:09] LABS: Calcium 8.6 MG/DL (8.5-10.1); Potassium 3.8 MMOL/L (3.5-5.1)
[2017-04-02] MEDS: INSULIN GLARGINE 100 UNIT/ML SUBCUT SCH ×2 (07:32→08:41)
[2017-04-02] MEDS: INSULIN LISPRO 100 UNIT/ML SUBCUT SCH ×3 (07:32→16:44)
[2017-04-02] MEDS ORDERED: INSULIN NPH 100 UNIT/ML SUBCUT ONE (10:00)
[2017-04-02 16:02] LABS: Calcium 8.4 MG/DL (8.5-10.1); Potassium 3.5 MMOL/L (3.5-5.1)
[2017-04-02 16:29] VITALS: BP 121/54
== END 2017-04-02 19:25 | disposition home or self-care (01) | DRG 781 ==
LOC: N.ED 18:22 → N.EDINP 04-01 01:48 → N.ICU 04-01 01:53 → N.4E 04-02 02:33
PROVIDERS: ADMIT Hospitalist; ATTEND Hospitalist